=== PATIENT | male | born 1940 | race Caucasian/White ===

== ENCOUNTER 2023-05-16 15:28 | Emergency (ER) | payer MEDICARE, BC ==
[~2023-05-16] VITALS: Ht 188 cm; Wt 77.0 kg
[2023-05-16 15:37] VITALS: BP 102/61; PULSE 63; RESP 16; TEMP 98.2; O2SAT 98
== END 2023-05-16 15:52 | disposition left against medical advice (07) ==
LOC: ER 15:28
DX: R55 Syncope and collapse (principal); Z53.21 Procedure and treatment not carried out due to patient leaving prior to being seen by health care provider
CPT/HCPCS: 99281